=== PATIENT | female | born 1995 | race Caucasian/White ===

== ENCOUNTER 2020-03-09 20:03 | Emergency (ER) | payer OTHER ==
[2020-03-09 20:13] VITALS: BP 148/94
--- NOTE | 2020-03-09 20:49 | ED Physician Documentation ---
History of Present Illness - Stated complaint Stated Complaint: LT TOE PX - Chief complaint Chief Complaint: Ext Problem - History obtained from History obtained from: Patient - History of Present Illness Timing: Prior to arrival - Additonal information Additional information: 25-year-old female presents to the emergency department for evaluation of left great toe pain. Reportedly 48 hours ago she had her great nail removed because it was ingrown. She also had a cyst on the medial side of the nail excised at that time as well. Since then she has been placing antibiotic ointment on the nailbed but it is gotten more painful and now the toe is mildly erythematous. She is also noticed some yellow drainage on the lateral side of the nailbed. She is concerned there is an infection. There is no fever Denies any pertinent past medical history. Has no history of skin or soft tissue infections. She is taking OCP control. Review of Systems Constitutional: reports: Reviewed and negative Nose: reports: Reviewed and negative Throat: reports: Reviewed and negative Cardiac: reports: Reviewed and negative Respiratory: reports: Reviewed and negative GI: reports: Reviewed and negative : reports: Reviewed and negative Skin: reports: Other (Great nail removed from left toe) Neurologic: reports: Reviewed and negative PD PAST MEDICAL HISTORY - Past Medical History Past Medical History: No - Past Surgical History Past Surgical History: No - Present Medications Home Medications: Ambulatory Orders Medication Instructions Recorded Confirmed Doxycycline Hyclate [Vibramycin] 100 mg PO BID 5 Days #10 capsule 03/09/20 - Allergies Allergies/Adverse Reactions: Allergies Allergy/AdvReac Type Severity Reaction Status Date / Time No Known Drug Allergies Allergy Verified 03/09/20 20:10 - Social History Does the pt smoke?: No Smoking Status: Never smoker Does the pt drink ETOH?: No Does the pt have substance abuse?: No - Immunizations Immunizations are current?: Yes - POLST Patient has POLST: No PD ED PE EXPANDED - General General: Alert, No acute distress - Extremities Extremities: Left toe(s) (Left great toe swollen with erythema but no drainage. The nailbed is missing the nail. Lateral side of cuticle with mild amount of purulent drainage. Nailbed itself appears to have healthy granulation tissue.) Results - Vitals Vitals: Vital Signs - 24 hr 03/09/20 20:10 Temperature 36.5 C Heart Rate 83 Respiratory 16 Rate Blood Pressure 148/94 H O2 Saturation 98 Oxygen O2 Source Room air PD MEDICAL DECISION MAKING - ED course Complexity details: considered differential, d/w patient ED course: 25-year-old female presents to the emergency department for evaluation of left great toe after nail removal 48 hours ago. The toes gotten more swollen and erythematous and painful since nail removal with lateral cuticle now draining purulent fluid. We will start her on doxycycline twice daily. I will also recommend warm Epson salt soaks for the great toe. She is to continue routine wound care with antibiotic ointment to the nail bed. Emergent return precautions discussed Departure - Departure Disposition: Home, Self Care Clinical Impression: Toe infection Condition: Stable Record reviewed to determine appropriate education?: Yes Prescriptions: Doxycycline Hyclate [Vibramycin] 100 mg PO BID 5 Days #10 capsule Comments: Lianna it looks like the toe is getting infected. I would like you to soak the toe in warm Epson salt soaks twice daily. I would also recommend that you attempt to remove any of the yellow material or drainage that you see in the cuticle edges. Lets start you on an antibiotic. Please take twice daily for the next week. If at any point you have increased redness, any fevers red streaking worsening pain despite the antibiotics and the salt soaks return to the ER for a second look
[2020-03-09] MEDS ORDERED: DOXYCYCLINE 100 MG TABLET PO STA (20:52)
== END 2020-03-09 21:00 | disposition home or self-care (01) ==
LOC: ED 20:03
DX: L08.9 Local infection of the skin and subcutaneous tissue, unspecified (principal); M79.675 Pain in left toe(s); Z98.890 Other specified postprocedural states
CPT/HCPCS: 99282; 99283; A9270

== ENCOUNTER 2021-04-11 08:00 | Outpatient (CLI) | payer OTHER ==
[2021-04-11 16:54] LABS: BILIRUBIN,URINE NEGATIVE (NEGATIVE); GLUCOSE, URINE (UA) NEGATIVE (NEGATIVE); KETONES,URINE (UA) NEGATIVE (NEGATIVE); LEUKOCYTE ESTERASE, URINE NEGATIVE (NEGATIVE); NITRITE,URINE NEGATIVE (NEGATIVE); OCCULT BLOOD,URINE NEGATIVE (NEGATIVE); PROTEIN,URINE NEGATIVE (NEGATIVE); UROBILINOGEN,URINE 0.2 (NORMAL) E.U./dL (NORMAL)
[2021-04-11 16:59] LABS: CLARITY,URINE CLEAR (CLEAR)
[2021-04-11 17:13] LABS: RBC,URINE None Seen /HPF (0-5); WBC,URINE 0-3 /HPF (0-5)
[2021-04-11 17:14] LABS: BACTERIA,URINE None Seen /HPF (None Seen); SQUAMOUS EPITHELIAL CELL,UR RARE Squamous (<= Few)
== END 2021-04-11 23:59 | disposition home or self-care (01) ==
LOC: LAB.WC 08:00
PROVIDERS: ATTEND Obstetrics & Gynecology
DX: Z32.01 Encounter for pregnancy test, result positive (principal)
CPT/HCPCS: 81001; 87086

== ENCOUNTER 2021-04-24 21:21 | Outpatient (CLI) | payer OTHER ==
--- NOTE | 2021-04-25 02:27 | Ultrasound Report ---
PROCEDURE: OB First Trimester w/TV INDICATIONS: POSITIVE TEST OUTSIDE/PRIOR DATING DATA: Last menstrual period (LMP): 02/25/2021. LMP-based estimated date of delivery (ANUP): 12/02/21. First dating scan (date and location): 04/24/2021. Estimated date of delivery (ANUP) from first dating scan: 12/06/2021. The below data below was generated using the ultrasound ANUP of 12/06/2021 TECHNIQUE: Real-time scanning was performed of the fetus and maternal pelvic organs, with image documentation. Endovaginal scanning was also performed to better visualize the fetus and maternal ovaries. COMPARISON: None. FINDINGS: Embryo: There is a single living intrauterine gestation with estimated sonographic gestational age o f approximately 7 weeks and 5 days based off crown-rump length measurement of 1.38 cm. No perigestati onal hemorrhage identified. The embryo appears to be implanted to the left side of the uterine cavity . Heart rate: heart rate measured 153 bpm. Measurement variability in dating: +/- 4 weeks by LMP, +/- 7 days by mean sac diameter (use before 6 weeks gestation if crown-rump length not able to be measured), +/- 5 days by crown-rump length (6-12 weeks gestation). Maternal organs: Maternal ovaries appear unremarkable with likely left-sided corpus cyst measuring 1. 3 cm in size. IMPRESSION: Single living intrauterine gestation with estimated sonographic gestational age of approximately 7 we eks and 5 days based off crown-rump length measurement. Estimated date of delivery is approximately . Recommend continued clinical surveillance and follow-up routine second trimester anatomic raymundoe mika survey. Reviewed by: José Luis Stone MD on 04/25/2021 2:26 AM PST Approved by: José Luis Stone MD on 04/25/2021 2:26 AM PST Station ID: [id number]
== END 2021-04-24 21:22 | disposition home or self-care (01) ==
LOC: DI 21:21
PROVIDERS: ATTEND Obstetrics & Gynecology
DX: Z32.01 Encounter for pregnancy test, result positive (principal)

== ENCOUNTER 2021-05-10 09:19 | Outpatient (CLI) | payer OTHER ==
[2021-05-10 09:57] LABS: BASOPHILS % (AUTO) 0.1 %; EOSINOPHILS # (AUTO) 0.1 10^3/uL (0.0-0.7); EOSINOPHILS % (AUTO) 1.2 %; HCT - HEMATOCRIT 37.1 % (37.0-47.0); HGB - HEMOGLOBIN 12.6 g/dL (12.0-16.0); LYMPHOCYTES # (AUTO) 1.9 10^3/uL (1.5-3.5); MEAN CORPUSCULAR HEMOGLOBIN 29.6 pg (27.0-31.0); MEAN CORPUSCULAR VOLUME 87.1 fL (81.0-99.0); MEAN PLATELET VOLUME 8.8 fL (7.9-10.8); MONOCYTES # (AUTO) 0.4 10^3/uL (0.0-1.0); MONOCYTES % (AUTO) 5.8 %; NEUTROPHILS # (AUTO) 5.1 10^3/uL (1.5-6.6); NEUTROPHILS % (AUTO) 67.4 %; PLT - PLATELET COUNT 246 10^3/uL (130-450); RED BLOOD COUNT 4.26 10^6/uL (4.20-5.40); RED CELL DISTRIBUTION WIDTH 12.3 % (12.0-15.0); WHITE BLOOD COUNT 7.6 x10^3/uL (4.8-10.8)
[2021-05-11 09:37] LABS: HEPATITIS B SURFACE ANTIGEN NON-REACTIVE (NON-REACTIVE); HEPATITIS C ANTIBODY NON-REACTIVE (NON-REACTIVE)
[2021-05-11 12:51] LABS: HIV AG/AB 4TH GEN NON-REACTIVE (NON-REACTIVE)
== END 2021-05-10 09:20 | disposition home or self-care (01) ==
LOC: LAB 09:19
PROVIDERS: ATTEND Obstetrics & Gynecology
DX: Z32.01 Encounter for pregnancy test, result positive (principal)
CPT/HCPCS: 36415; 85025; 86592; 86762; 86787; 86803; 86850; 86900; 86901; 87340; 87389

== ENCOUNTER 2021-05-25 14:30 | Outpatient (CLI) | payer OTHER ==
[2021-05-26 00:57] LABS: CHLAMYDIA TRACHOMATIS DNA NEGATIVE (NEGATIVE); NEISSERIA GONORRHOEAE DNA NEGATIVE (NEGATIVE); TRICHOMONAS VAGINALIS DNA NEGATIVE (NEGATIVE)
== END 2021-05-25 23:59 | disposition home or self-care (01) ==
LOC: LAB 14:30
PROVIDERS: ATTEND Obstetrics & Gynecology
DX: Z11.3 Encounter for screening for infections with a predominantly sexual mode of transmission (principal)
CPT/HCPCS: 87491; 87591; 87661

== ENCOUNTER 2021-06-26 17:27 | Outpatient (CLI) | payer OTHER ==
[2021-06-28 11:56] LABS: AFP MOM 1.47; AGE RISK DOWN SYNDROME 1 IN 1025; CALC'D GESTATIONAL AGE 17.3 weeks; CIGARETTE SMOKER? NOT GIVEN; DONOR AGE: EGG RETRIEVAL NOT GIVEN; DONOR EGG NO; ESTRIOL MOM 0.86; HCG MOM 1.67; HX OF NEURAL TUBE DEFECTS NO; INHIBIN A MOM 1.22; INSULIN DEPEND DIABETIC NO; MATERNAL WEIGHT 182 lbs; MSS DOWN SYNDROME RISK <1 IN 5000; MSS3 TRISOMY 18 RISK <1 IN 5000; NUMBER OF FETUSES 1; PREV PREGNANCY DOWN SYND NO; RISK FOR ONTD 1 IN 2965
== END 2021-06-26 17:28 | disposition home or self-care (01) ==
LOC: LAB.N 17:27
PROVIDERS: ATTEND Obstetrics & Gynecology
DX: Z34.90 Encounter for supervision of normal pregnancy, unspecified, unspecified trimester (principal)
CPT/HCPCS: 36415; 81511

== ENCOUNTER 2021-07-17 19:31 | Outpatient (CLI) | payer OTHER ==
--- NOTE | 2021-07-18 11:08 | Ultrasound Report ---
PROCEDURE: OB Detailed Eval INDICATIONS: SUPERVISION OF OUTSIDE/PRIOR DATING DATA: Last menstrual period (LMP): 02/25/2021. LMP-based estimated date of delivery (ANUP): 12/02/2021. First dating scan (date and location): 04/24/2021. Estimated date of delivery (ANUP) from first dating scan: 12/06/2021. The below data below was generated using the ultrasound ANUP of 12/06/2021 TECHNIQUE: Real-time scanning was performed of the fetus, with image documentation and biometric measurements. COMPARISON: OB ultrasound 04/24/2021 FINDINGS: General: A single living intrauterine gestation is present. Presentation: Breech Placenta: Placental position is anterior, without previa. Amniotic fluid index: 11.9 cm, within normal limits for gestational age. Largest pocket 3.9 cm. heart rate: 150 beats per minute. Maternal cervical canal: 4.4 cm long; normal length is 2.5 cm or more. biometrics: Biparietal diameter: 4.6 cm 20 weeks 0 days Head circumference: 17.1 cm 20 weeks 0 days Abdominal circumference: 15.1 cm 20 weeks 2 days Femur length: 3.1 cm 19 weeks 4 days Estimated gestational age from initial scan: 19 weeks 5 days Composite gestational age from present scan: 19 weeks 5 days Estimated weight and percentile: 325 g 61st percentile Measurement variability in biometric dating: +/- 10 days from 12-20 weeks gestation, +/- 2 weeks from 20-30 weeks gestation, +/- 3 weeks at 30 weeks gestation or later. Anatomic survey: Neuro: Ventricles are normal at less than 10 mm. Cisterna magna is normal at 3-11 mm. Cerebellum i s normal in size and morphology. Nuchal skin fold: Normal at less than 6 mm between 14 and 20 weeks gestational age. Face: Nose and lips, facial profile are not well seen. Spine: No evidence for spina bifida. Heart: 4-chambered heart and ventricular outflow tracts are not well seen. Diaphragm: Diaphragm is intact. Stomach: Left-sided stomach is present. Kidneys: No hydronephrosis. Normal is less than 5 mm in 2nd trimester, less than 7 mm in 3rd trimester. Cord: 3 vessel cord has orthotopic insertion. Bladder: Normal in size. Extremities: All 4 extremities are visualized. IMPRESSION: Single live intrauterine with ultrasound gestational age today of 19 weeks 5 days. profile as well as 4 chambered heart and outflow tracts are not well visualized. Recommend inte rval follow-up for additional evaluation. Reviewed by: Irma Morse MD on 07/18/2021 11:06 AM PDT Approved by: Irma Morse MD on 07/18/2021 11:06 AM PDT Station ID: [id number]
== END 2021-07-17 19:32 | disposition home or self-care (01) ==
LOC: DI 19:31
PROVIDERS: ATTEND Obstetrics & Gynecology
DX: Z34.92 Encounter for supervision of normal pregnancy, unspecified, second trimester (principal); Z36.89 Encounter for other specified antenatal screening

== ENCOUNTER 2021-08-02 10:27 | Outpatient (CLI) | payer OTHER ==
[2021-08-02 10:46] LABS: BILIRUBIN,URINE NEGATIVE (NEGATIVE); CLARITY,URINE CLEAR (CLEAR); GLUCOSE, URINE (UA) NEGATIVE (NEGATIVE); KETONES,URINE (UA) NEGATIVE (NEGATIVE); LEUKOCYTE ESTERASE, URINE NEGATIVE (NEGATIVE); NITRITE,URINE NEGATIVE (NEGATIVE); OCCULT BLOOD,URINE NEGATIVE (NEGATIVE); PH,URINE 6.5 PH (5.0-7.5); PROTEIN,URINE NEGATIVE (NEGATIVE); UROBILINOGEN,URINE 0.2 (NORMAL) E.U./dL (NORMAL)
[2021-08-02 11:03] LABS: BACTERIA,URINE Few /HPF (None Seen); RBC,URINE 0-5 /HPF (0-5); SQUAMOUS EPITHELIAL CELL,UR FEW Squamous (<= Few); WBC,URINE 0-3 /HPF (0-5)
== END 2021-08-02 10:28 | disposition home or self-care (01) ==
LOC: LAB 10:27
PROVIDERS: ATTEND Obstetrics & Gynecology
DX: Z34.90 Encounter for supervision of normal pregnancy, unspecified, unspecified trimester (principal); R33.9 Retention of urine, unspecified
CPT/HCPCS: 81001; 87086

== ENCOUNTER 2021-08-03 06:57 | Outpatient (CLI) | payer OTHER ==
--- NOTE | 2021-08-03 11:44 | Ultrasound Report ---
PROCEDURE: OB F/U or Repeat INDICATIONS: SUPERVISION OF OUTSIDE/PRIOR DATING DATA: Last menstrual period (LMP): 02/25/2021. LMP-based estimated date of delivery (ANUP): 12/02/2021. First dating scan (date and location): 04/24/2021. Estimated date of delivery (ANUP) from first dating scan: 12/06/2021. The below data below was generated using the ultrasound ANUP of 12/06/2021 TECHNIQUE: Real-time scanning was performed of the fetus, with image documentation and biometric measurements. Endovaginal scanning: Not performed COMPARISON: 07/17/2021 FINDINGS: General: A single living intrauterine gestation is present. Presentation: Breech Placenta: Placental position is anterior, without previa. Amniotic fluid index: 15.8 cm, largest pocket is 4.6 cm. heart rate: 126 beats per minute. Maternal cervical canal: Closed and 3.8 cm long; normal length is 2.5 cm or more. Other: 4 chambered heart and ventricular outflow tracts are well seen and appear normal. facial profile is well seen and is normal. IMPRESSION: 1. Completion of anatomic survey with visualization of normal-appearing heart, cardiac outflow tracts, and facial profile. Reviewed by: Laurie Farrell MD on 08/03/2021 11:43 AM PDT Approved by: Laurie Farrell MD on 08/03/2021 11:43 AM PDT Station ID: [id number]
== END 2021-08-03 06:58 | disposition home or self-care (01) ==
LOC: DI 06:57
PROVIDERS: ATTEND Obstetrics & Gynecology
DX: Z34.90 Encounter for supervision of normal pregnancy, unspecified, unspecified trimester (principal)

== ENCOUNTER 2021-08-30 14:58 | Outpatient (CLI) | payer OTHER ==
[2021-08-30 20:58] LABS: BACTERIAL VAGINOSIS DNA NEGATIVE (NEGATIVE); CANDIDA GLABRATA DNA NEGATIVE (NEGATIVE); CANDIDA GROUP DNA POSITIVE (NEGATIVE); CANDIDA KRUSEI DNA NEGATIVE (NEGATIVE); TRICHOMONAS VAGINALIS DNA NEGATIVE (NEGATIVE)
== END 2021-08-30 14:59 | disposition home or self-care (01) ==
LOC: LAB.R 14:58
PROVIDERS: ATTEND Obstetrics & Gynecology
DX: L29.8 Other pruritus (principal)
CPT/HCPCS: 81514

== ENCOUNTER 2021-09-08 14:07 | Outpatient (CLI) | payer OTHER ==
[2021-09-08 15:05] LABS: BILIRUBIN,URINE NEGATIVE (NEGATIVE); GLUCOSE, URINE (UA) NEGATIVE (NEGATIVE); KETONES,URINE (UA) NEGATIVE (NEGATIVE); LEUKOCYTE ESTERASE, URINE NEGATIVE (NEGATIVE); NITRITE,URINE NEGATIVE (NEGATIVE); OCCULT BLOOD,URINE NEGATIVE (NEGATIVE); PH,URINE 7.5 PH (5.0-7.5); PROTEIN,URINE NEGATIVE (NEGATIVE); UROBILINOGEN,URINE 0.2 (NORMAL) E.U./dL (NORMAL)
[2021-09-08 15:09] LABS: CLARITY,URINE HAZY (CLEAR)
[2021-09-08 15:18] LABS: RBC,URINE None Seen /HPF (0-5); WBC,URINE 0-3 /HPF (0-5)
[2021-09-08 15:19] LABS: AMORPHOUS SEDIMENT,UR Few /LPF; BACTERIA,URINE Few /HPF (None Seen); SQUAMOUS EPITHELIAL CELL,UR MOD Squamous (<= Few)
== END 2021-09-08 14:08 | disposition home or self-care (01) ==
LOC: LAB 14:07
PROVIDERS: ATTEND Obstetrics & Gynecology
DX: R33.9 Retention of urine, unspecified (principal); Z34.90 Encounter for supervision of normal pregnancy, unspecified, unspecified trimester
CPT/HCPCS: 81001; 87086

== ENCOUNTER 2021-09-18 21:00 | Emergency (ER) | payer OTHER | END 2021-09-18 21:25 | disposition home or self-care (01) | LOC: ED 21:00 | DX: O22.43 Hemorrhoids in pregnancy, third trimester (principal); Z36.89 Encounter for other specified antenatal screening; Z3A.29 29 weeks gestation of pregnancy | CPT/HCPCS: 36415; 82950; 85027; 99281 ==

== ENCOUNTER 2021-10-11 08:00 | Outpatient (CLI) | payer OTHER ==
[2021-10-11 21:10] LABS: CHLAMYDIA TRACHOMATIS DNA NEGATIVE (NEGATIVE); NEISSERIA GONORRHOEAE DNA NEGATIVE (NEGATIVE); TRICHOMONAS VAGINALIS DNA NEGATIVE (NEGATIVE)
== END 2021-10-11 23:59 | disposition home or self-care (01) ==
LOC: LAB 08:00
PROVIDERS: ATTEND Obstetrics & Gynecology
DX: Z11.3 Encounter for screening for infections with a predominantly sexual mode of transmission (principal)
CPT/HCPCS: 87491; 87591; 87661